=== PATIENT | female | born 1985 | race Hispanic/Latino ===

== ENCOUNTER → 2018-06-07 | Emergency (ER) | payer OTHER ==
[~2018-06-07] VITALS: Ht 154.9 cm; Wt 65.3 kg
[~2018-06-07] MED LIST: METOPROLOL SUCC25 MG PO
[2018-06-07 22:25] VITALS: BP 138/90
== END | disposition home or self-care (01) ==
LOC: FSED 20:06
DX: O92.79 Other disorders of lactation (principal)
CPT/HCPCS: 99282

== ENCOUNTER 2022-03-07 15:20 | Emergency (ER) | payer SELFPAY ==
[~2022-03-07] VITALS: Ht 154.9 cm; Wt 64.4 kg
[2022-03-07] MEDS ORDERED: KETOROLAC TROMETHAMINE 60 MG/2 ML VIAL IM ONE (19:00)
[2022-03-07] MEDS ORDERED: PREDNISONE20 MG PO (19:03)
[2022-03-07] MEDS ORDERED: KETOROLAC TROMETHAMINE 60 MG/2 ML VIAL ONE (19:07)
== END 2022-03-07 19:41 | disposition home or self-care (01) ==
LOC: FSED 17:13
DX: M54.31 Sciatica, right side (principal); I45.6 Pre-excitation syndrome
CPT/HCPCS: 96372; 99282; J1885